=== PATIENT | female | born 1950 | race Caucasian/White ===

== ENCOUNTER 2017-11-22 22:35 | Emergency (ER) | payer OTHER ==
[2017-11-22 22:41] VITALS: BP 157/97
[2017-11-22] MEDS ORDERED: PROPARACAINE 0.5% 15 ML OPHT DROP ONE (22:45)
--- NOTE | 2017-11-22 23:06 | EDPHY ---
H & P Stated Complaint: flashing in corner of right eye, pressure feeling Time Seen by Provider: 11/22/17 22:43 HPI/ROS: Chief Complaint: Flashing in right eye, feeling of pressure HPI: 67-year-old woman with a history of hypothyroidism is presenting with the onset of flashing lights in the superior aspect of her vision of her right eye while watching TV this evening. She has also been having increasing floaters. She has sensation that there is increased pressure in that eye. Denies any recent eye injuries. She wears glasses. She does not wear contacts. No discharge. No pain or irritation. She has had multiple flashing lights in a linear pattern in the upper filled for vision only. There are no aggravating or alleviating factors. ROS: 10 point Review of Systems is negative except as noted in the HPI. PMH: Hypothyroidism Social History: No smoking, occasional alcohol, no recreational drug use Family History: non-contributory Physical Exam: General: Awake, alert, no acute distress Eye Exam Visual Acuity: 20/25 OU EOM: Intact OU Visual Manrique: Intact OU Pupil: Equal, round and reactive to light and accomodation OU External: Lids, lashes and margins normal OU Fundoscopy; difficult examination, normal fundus, no obvious retinal detachment or changes on this limited examination Tonometry: Right eye: 18, 19, 18, left eye: 18, 18 Skin: No rash Neuro: Cranial nerves 2-12 are intact - Personal History Current Tetanus/Diphtheria Vaccine: No Current Tetanus Diphtheria and Acellular Pertussis (TDAP): No - Medical/Surgical History Hx Asthma: No Hx Chronic Respiratory Disease: No Hx Diabetes: No Hx Cardiac Disease: No Hx Renal Disease: No Hx Cirrhosis: No Hx Alcoholism: No Hx HIV/AIDS: No Hx Splenectomy or Spleen Trauma: No Other PMH: hypothyroid, ortho surgery, quilt stuffer surgery - Social History Smoking Status: Never smoked Constitutional: Initial Vital Signs Temperature (C) 36.7 C 11/22/17 22:39 Heart Rate 84 11/22/17 22:39 Respiratory Rate 16 11/22/17 22:39 Blood Pressure 157/97 H 11/22/17 22:39 O2 Sat (%) 95 11/22/17 22:39 O2 Delivery Mode Room Air Allergies/Adverse Reactions: sulfamethoxazole [From Bactrim] Allergy (Verified 11/22/17 22:38) trimethoprim [From Bactrim] Allergy (Verified 11/22/17 22:38) Home Medications: Medication Instructions Recorded Thyroid,Pork [Azle Thyroid] 120 mg PO 02/09/11 Medical Decision Making ED Course/Re-evaluation: 67-year-old woman presenting with flashers and floaters in her superior vision of her right eye this evening. Her visual manrique are completely intact. Her her intra-ocular pressures are normal. Her visual acuity is 20/25 in both eyes. Symptoms are consistent with a likely vitreous detachment. Will discussed with Ophthalmology. She will need follow-up tomorrow. Case discussed with Dr. Dontrell Amezcua, ophthalmology. He will see her in the morning. He is in agreement with the treatment plan. Departure - Departure Disposition: Home, Routine, Self-Care Clinical Impression: Vitreous detachment Condition: Good Instructions: Visual Floaters (ED) Additional Instructions: Follow up with Ophthalmology, either you're head refrigerating engineer or Dr. Amezcua tomorrow morning. Return to the emergency department for increasing visual loss, pain, discharge from her eye, or any other concerns. Referrals: Dontrell Amezcua MD [Medical Doctor] - As per Instructions Lelia Chin MD [Medical Doctor] - As per Instructions
== END 2017-11-22 23:20 | disposition home or self-care (01) ==
DX: H43.811 Vitreous degeneration, right eye (principal)

== ENCOUNTER → 2018-07-10 | Outpatient (CLI) | payer OTHER | LOC: FIMAGING 14:44 | PROVIDERS: ATTEND Obstetrics & Gynecology Gynecology | DX: Z12.31 Encounter for screening mammogram for malignant neoplasm of breast (principal) ==